=== PATIENT | male | born 1995 | race Caucasian/White ===

== ENCOUNTER 2017-03-12 19:16 | Emergency (ER) | payer OTHER ==
[~2017-03-12] VITALS: Ht 180.3 cm; Wt 92.0 kg
[2017-03-12 19:24] VITALS: O2SAT 96; Ht 180.3 cm; Wt 92.0 kg
--- NOTE | 2017-03-12 19:29 | EMERGENCY ROOM VISIT NOTE ---
History Report prepared by Mernaibe: Jenna Berkowitz Under the Supervision of: Dr. Bony Kellogg M.D. First contact with patient: 19:23 Stated Complaint: ETOH History of Present Illness The patient is a 21 year old male who presents to the Emergency Room with complaints of episode of an alcohol overdose occurring just prior to arrival. The patient denies falling or hitting his head. He notes drinking both liquor and beer, but denies taking any drugs. The patient notes that he feels nauseous. The patient is from [place] and says he came to [place] for the [place]. History limited secondary to intoxication. Source of History: patient History Limited By: intoxication Onset: just prior to arrival Position: other (generalized) Timing: other (episode) Associated Symptoms: + nausea Review of Systems ROS limited secondary to intoxication Past Medical & Surgical Medical Problems: (1) No Known Active Medical Problems Family History No pertinent family history stated Social History Smokeless Tobacco Use: Unknown Alcohol Use: occasionally Drug Use: none Current/Historical Medications Unable to Obtain Active Prescriptions or Reported Meds Physical Exam Vital Signs Date Time Temp Pulse Resp B/P (MAP) Pulse Ox O2 Delivery O2 Flow Rate FiO2 03/13/17 04:33 70 16 117/51 97 03/13/17 04:28 70 16 117/51 97 Room Air 03/13/17 02:00 78 20 113/61 98 Room Air 03/13/17 01:25 70 20 110/55 94 Room Air 03/12/17 23:49 60 17 115/51 93 Room Air 03/12/17 23:01 90 18 110/49 95 Room Air 03/12/17 21:42 63 18 112/52 98 Room Air 03/12/17 20:03 78 03/12/17 19:24 96 Room Air 03/12/17 19:24 97 19 127/99 97 Room Air Physical Exam GENERAL: Awake, alert,mildly slurred speech, smells of alcohol, in no distress HENT: Normocephalic, atraumatic. Oropharynx unremarkable. Dry MM. EYES: Normal conjunctiva. Sclera non-icteric. NECK: Supple. No nuchal rigidity. FROM. No JVD. RESPIRATORY: Clear to auscultation. CARDIAC: Regular rate, normal rhythm. Extremities warm and well perfused. Pulses equal. ABDOMEN: Soft, non-distended. No tenderness to palpation. No rebound or guarding. No masses. RECTAL: Deferred. MUSCULOSKELETAL: Chest examination reveals no tenderness. The back is symmetrical on inspection without obvious abnormality. There is no CVA tenderness to palpation. No joint edema. LOWER EXTREMITIES: Calves are equal size bilaterally and non-tender. No edema. No discoloration. NEURO: Normal sensorium. No sensory or motor deficits noted. SKIN: No rash or jaundice noted. Abrasion to bridge of nose which the patient says is from playing rugby prior to this weekend Medical Decision & Procedures Laboratory Results Test 03/12/17 19:51 Ethyl Alcohol mg/dL 315.7 mg/dl (0-3) Laboratory results reviewed by me ED Course 1923: The patient was evaluated in room C1A. A complete history and physical exam was performed. Medical Decision I reviewed the patient's past medical history, medications, and the nursing notes as described above.Differential diagnoses: alcohol intoxication. The patient is a pleasant 21-year-old gentleman who presents with department after being overly intoxicated at the football game per history of present illness. He reports hard liquor today and denies any other ingestions. He has slurred speech but is alert and oriented 3 and is aware he was brought to the emergency department for over intoxication. He is a minor abrasion to his bridge of his nose which he reports obtaining when he was playing rugby prior to coming up to [place] from [place]. The patient denies any complaints in his been feeling healthy. Well observe and allowed to metabolize until clinically sober. Etoh 315. Observed and allowed to metabolized until clinically sober. Acting appropriately. D/c'd per [facility]ci. Medication Reconcilliation Current Medication List: was personally reviewed by me Impression Primary Impression: Alcohol use with intoxication Scribe Attestation The scribe's documentation has been prepared under my direction and personally reviewed by me in its entirety. I confirm that the note above accurately reflects all work, treatment, procedures, and medical decision making performed by me. Departure Information Dispostion Home / Self-Care Prescriptions Unable to Obtain Active Prescriptions or Reported Meds Patient Instructions ED Alcohol Intoxication, [facility]: [employer] Students and Alcohol Related Visits, My [facility] Additional Instructions Please follow up with your primary care physician in the next 1-3 days for re- evaluation. You were seen for excessive alcohol intoxication. You should not abuse alcohol or drugs. Seek help if you need it. Return to the emergency department for worsening symptoms as described in the accompanying instructions.
[2017-03-13 04:33] VITALS: BP 117/51; PULSE 70; O2SAT 97
== END 2017-03-13 04:33 | disposition home or self-care (01) ==
LOC: EDBD 19:16 → C.EDC 19:20 → C.ED 03-13 04:33
DX: F10.129 Alcohol abuse with intoxication, unspecified (principal); Y90.8 Blood alcohol level of 240 mg/100 ml or more